=== PATIENT | male | born 1940 | race Caucasian/White ===

== ENCOUNTER 2018-02-18 06:49 | Day surgery (SDC) | payer MEDICARE ==
[~2018-02-18] VITALS: Ht 182.9 cm; Wt 94.6 kg
[~2018-02-18 06:49] MED LIST: ASPI-621 PO; ATOR20TA9 PO; EYE VITAMIN PO; MULT-516 PO; PROZAC PO; TAMS-11 PO; VITA1TAB19 PO
[2018-02-18] MEDS ORDERED: LIDOCAINE-MPF 2%, 2ML ONE (07:04)
[2018-02-18] MEDS ORDERED: FENTANYL PF 100 MCG/2ML ONE (07:17)
[2018-02-18] MEDS ORDERED: MIDAZOLAM 1 MG/ML, 5ML ONE (07:17)
[2018-02-18] MEDS ORDERED: NALOXONE 1 MG/ML, 2ML ONE (07:18)
[2018-02-18] MEDS ORDERED: NITROGLYCERIN 5 MG/ML, 10ML ONE (07:18)
[2018-02-18] MEDS ORDERED: PROTAMINE SULFATE 10 MG/ML, 25ML ONE (07:18)
[2018-02-18] MEDS ORDERED: FLUMAZENIL 0.1 MG/1 ML, 5ML ONE (07:18)
[2018-02-18] MEDS ORDERED: HEPARIN 1,000 UNITS/ML, 10ML ONE (07:18)
[2018-02-18 07:34] VITALS: BP 128/72
[2018-02-18 08:14] LABS: BASOPHILS % (AUTO) 1 % (0-1); EOSINOPHILS # (AUTO) 0.32 x10^3/uL (0-0.4); EOSINOPHILS % (AUTO) 4 % (1-7); LYMPHOCYTES # (AUTO) 2.79 x10^3/uL (1-3.4); LYMPHOCYTES % (AUTO) 31 % (22-44); MD NO; MEAN CORPUSCULAR HEMOGLOBIN 30.4 pg (27.5-34.5); MEAN CORPUSCULAR HGB CONC 33.7 g/dL (33.2-36.2); MEAN CORPUSCULAR VOLUME 90.2 fL (81-97); MEAN PLATELET VOLUME 7.6 fL (7.4-10.4); MONOCYTES # (AUTO) 0.83 x10^3/uL (0.2-0.8); MONOCYTES % (AUTO) 9 % (2-9); NEUTROPHILS # (AUTO) 5.11 x10^3/uL (1.8-6.8); NEUTROPHILS % (AUTO) 56 % (42-75); PLATELET COUNT 257 x10^3/uL (130-400); RED BLOOD COUNT 5.34 x10^6/uL (4.38-5.82); RED CELL DISTRIBUTION WIDTH 13.7 % (9.4-14.8)
[2018-02-18 08:25] LABS: CALCIUM 8.6 mg/dL (8.5-10.1); CREATININE 1.11 mg/dL (0.7-1.3)
[2018-02-18 08:35] LABS: ANION GAP 10 mmol/L (5-15); CHLORIDE 111 mmol/L (98-107)
[2018-02-18] MEDS ORDERED: VISIPAQUE 270 MG/ML, 150ML BOTTLE ONE (09:18)
== END 2018-02-18 13:20 | disposition home or self-care (01) ==
LOC: OUT 06:49
PROVIDERS: ATTEND Surgery Vascular Surgery
DX: I70.213 Atherosclerosis of native arteries of extremities with intermittent claudication, bilateral legs (principal); J44.9 Chronic obstructive pulmonary disease, unspecified; F17.210 Nicotine dependence, cigarettes, uncomplicated; E78.5 Hyperlipidemia, unspecified; F32.9 Major depressive disorder, single episode, unspecified; Z85.46 Personal history of malignant neoplasm of prostate; Z86.73 Personal history of transient ischemic attack (TIA), and cerebral infarction without residual deficits; Z87.440 Personal history of urinary (tract) infections; Z98.890 Other specified postprocedural states; Z79.82 Long term (current) use of aspirin; Z79.899 Other long term (current) drug therapy; Z72.89 Other problems related to lifestyle
CPT/HCPCS: 36200; 36415; 75630; 76937; 80048; 85025; 99156; 99157; C1751; C1769; C1894; J1644; J2250; J3010; J3490; Q9966; J2720; J2310